=== PATIENT | female | born 1965 | race Caucasian/White ===

== ENCOUNTER → 2023-12-28 10:42 | Outpatient (CLI) | payer BC, SELFPAY ==
--- NOTE | 2023-12-28 10:46 | DI.MRI.S_ITS ---
PROCEDURE: MR LUMBAR SPINE WO CON INDICATIONS: LOW BACK PAIN TECHNIQUE: Noncontrast sagittal T1 spin echo and T2 fast echo, sagittal STIR, and T2 fast spin echo through the lumbar spine. In cases with scoliosis, additional coronal T2 fast spin echo may be performed. COMPARISON: None. FINDINGS: Image quality: Excellent. Alignment and Curvature: There is normal bony alignment. Bone Marrow: Modic type 1 degenerative endplate changes at L5-S1. Marrow is of normal overall signal. No acute vertebral body compression fractures. Spinal Cord: Conus medullaris terminates at the L1 level. Visualized cord demonstrates normal signal and size. Paraspinous Soft Tissues: No paravertebral masses. T12-L1: Normal appearance. L1-L2: Normal appearance. L2-L3: Disc desiccation and mild diffuse disc bulge. Facet arthropathy and thickening of ligamentum flavum. No central canal or neural foraminal stenosis. L3-L4: Disc desiccation height loss. Facet arthropathy. No central canal or neural foraminal stenosis. L4-L5: Disc desiccation height loss. Mild diffuse disc bulge. Facet arthropathy and thickening of ligamentum flavum. Significant central canal or neural foraminal stenosis. L5-S1: Disc desiccation height loss. Mild diffuse disc bulge. Facet arthropathy. No central canal stenosis. No significant neural foraminal stenosis. IMPRESSION: Mild multilevel degenerative changes of the lumbar spine without significant central canal or neural foraminal stenosis. Dictated by: Fili León M.D. on 12/28/2023 at 14:21 Approved by: Fili León M.D. on 12/28/2023 at 14:23
== END ==
LOC: MRI 10:45
PROVIDERS: PCP Specialist; Referring Provider Neurological Surgery; Visit Provider Neurological Surgery
DX: M47.26 Other spondylosis with radiculopathy, lumbar region (principal); M47.27 Other spondylosis with radiculopathy, lumbosacral region
CPT/HCPCS: 72148